=== PATIENT | female | born 1975 | race African-American/Black ===

== ENCOUNTER 2018-05-17 18:04 | Emergency (ER) | payer SELFPAY ==
[~2018-05-17] VITALS: Ht 172.7 cm; Wt 90.0 kg
[2018-05-17] MEDS ORDERED: IBUPROFEN 600MG TABLET PO ONE (20:00)
[2018-05-17] MEDS ORDERED: HYDROCODONE/ACETAMINOPHEN 5/325MG TABLET PO ONE (20:45)
[2018-05-17] MEDS ORDERED: LIDOCAINE HCL 1% 20ML VIAL (Pyxis) INJ INFIL ONE (22:45)
[2018-05-18 00:20] VITALS: BP 127/77
== END 2018-05-18 00:32 | disposition home or self-care (01) ==
LOC: ER 18:04
DX: S63.283A Dislocation of proximal interphalangeal joint of left middle finger, initial encounter (principal); Y08.89XA Assault by other specified means, initial encounter; Y93.89 Activity, other specified; Y92.89 Other specified places as the place of occurrence of the external cause; Y99.8 Other external cause status
CPT/HCPCS: 26770; 73130; 73140; 99284; J3490